=== PATIENT | male | born 1965 | race Hispanic/Latino ===

== ENCOUNTER 2024-06-13 23:58 | Emergency (ER) | payer BC, OTHER ==
[~2024-06-13] VITALS: Ht 172.7 cm; Wt 104.3 kg
[2024-06-14 00:17] LABS: APPEARANCE,URINE TURBID (CLEAR); BILIRUBIN,URINE NEGATIVE (NEGATIVE); COLOR,URINE YELLOW (YELLOW); GLUCOSE, URINE (UA) NEGATIVE (NEGATIVE); KETONES,URINE NEGATIVE (NEGATIVE); LEUKOCYTE ESTERASE ,URINE 500 Leu/uL (NEGATIVE); NITRATE,URINE NEGATIVE (NEGATIVE); OCCULT BLOOD,URINE MODERATE (NEGATIVE); PROTEIN,URINE 100 mg/dL (NEGATIVE)
[2024-06-14 00:26] LABS: BASOPHILS # (AUTO) 0.03 K/uL (0.00-0.20); BASOPHILS % (AUTO) 0.2 % (0.0-5.0); EOSINOPHILS # (AUTO) 0.15 K/uL (0.00-0.70); EOSINOPHILS % (AUTO) 1.2 % (0.0-8.0); HEMATOCRIT 44.7 % (42-54); IMMATURE GRANULOCYTE ABSOLUTE 0.03 K/uL (0-1); LYMPHOCYTES # (AUTO) 1.4 K/uL (1.0-4.8); LYMPHOCYTES % (AUTO) 10.8 % (21.0-51.0); MEAN CORPUSCULAR HEMOGLOBIN 29.5 pg (27.0-33.0); MEAN CORPUSCULAR HGB CONC 34.2 g/dL (32.0-36.0); MEAN CORPUSCULAR VOLUME 86.1 fL (79-99); MONOCYTES # (AUTO) 0.6 K/uL (0.1-1.0); MONOCYTES % (AUTO) 4.6 % (3.0-13.0); NEUTROPHILS # (AUTO) 10.8 K/uL (1.8-7.7); PLATELET COUNT (AUTO) 202 K/uL (130-400); RED BLOOD CELL COUNT(AUTO) 5.19 MIL/uL (4.50-6.20); RED CELL DISTRIBUTION WIDTH 12.9 % (11.0-15.5)
[2024-06-14 00:27] LABS: ADD UA MICROSCOPIC YES
[2024-06-14 00:30] VITALS: TEMP 100.2
[2024-06-14 00:30] LABS: MUCUS,URINE RARE LPF (None Seen); RBC,URINE TNTC /HPF (0-1); SQUAMOUS EPITHELIAL CELL,UR RARE /HPF (0-2); WBC CLUMP MANY /HPF (0-1); WBC,URINE TNTC /HPF (0-1)
[2024-06-14] MEDS: acetaMINOPHEN 325 MG TAB PO ONE (00:30)
--- NOTE | 2024-06-14 00:31 | NUR ---
Walt bautista in [facility] - 06/14/24 at 0031 by MARYJO BLADDER SCAN 12
--- NOTE | 2024-06-14 00:31 | NUR ---
BLADDER SCAN 112MLS
[2024-06-14 00:35] LABS: CREATININE 0.9 mg/dL (0.5-1.3); POTASSIUM 3.7 mmol/L (3.5-5.1)
--- NOTE | 2024-06-14 01:00 | ERN ---
ED Note History of Present Illness Stated Complaint: FEVER, CHILLS, URINARY RETENTION Chief Complaint: Multiple Complaints Time Seen by MD: 00:00 Time Seen by Midlevel: 00:00 Dictation: The patient is a 58-year-old male with a history of prostate surgery last year who presents to the emergency department with complaints of painful urination, chills, fevers onset yesterday. Patient denies any nausea, vomiting, diarrhea, constipation. Reports occasional suprapubic abdominal pain. Denies any flank pain. Allergies: Coded Allergies: No Known Allergies (Unverified Allergy, Unknown, 06/14/24) Past Medical History Past Medical History: No Pertinent History Surgical History: Other Surgical History Other: PROSTATE RN Note Reviewed/Agreed w/PFSH: Yes Review of System Dictation Constitutional: Negative for and weight loss positive for fever, chills Eyes: Negative for injury, pain,redness, and discharge ENT: Negative for injury,pain or swelling Cardiovascular: Negative for chest pain, palpitations, and edema Respiratory: Negative for shortness of breath, cough, and wheezing, Abdomen/GI: Negative for , nausea, vomiting, diarrhea, and constipation positive for suprapubic abdominal pain Back: Negative for injury and pain : Negative for injury, bleeding and discharge positive for painful urination MS/Extremity: Negative for injury and deformity Skin: Negative for rash, and discoloration Neuro: Negative for headache, weakness, numbness, tingling, and seizure Psych: Negative for suicide ideation, homicidal ideation, and hallucinations Initial Vital Sign VS Vital Signs Date Time Temp Pulse Resp B/P (MAP) Pulse Ox O2 Delivery O2 Flow Rate FiO2 06/14/24 00:00 99.1 87 16 139/92 98 Room Air 06/14/24 00:23 0 21 Physical Exam Dictation Vital Signs reviewed General Appearance: Alert, oriented x 3, no acute distress, well developed, nourished. Head and Face: non-traumatic. Eyes: PERRL, pink conjunctivas, eyelid no trauma, anterior chamber with arcus senilis. Ears: Pinnas intact and no signs of trauma or erythema ear canals clear and no discharge TM no erythema Nose: No discharge, no bleeding. Oropharynx: Mouth normal, tongue pink. pharynx clear,no erythema, tonsils no exudates, no abscesses noted, mucous membrane moist Neck: Supple, non-tender, no thyromegaly, no masses, no JVD, no bruits Breast:Deferred Chest:No tenderness, no crepitus, no paradoxical movement, no retractions Lungs:Clear, well-ventilated, symmetric, no rales, no wheezing, no rhonchi, no stridor, good breath sounds bilaterally Heart: Regular rate, regular rhythm, no murmur, no gallops Vascular: no peripheral edema, Abdomen: Soft, positive bowel sounds, nondistended, no guarding, nontender, no rebound, no masses no hepatomegaly, no splenomegaly, no Perera's sign, no hernias. Rectal: Deferred Genital: Deferred Neurological: Normal speech, motor function intact, sensory function intact Musculoskeletal: Neck nontender, full range of motion, back nontender, full range of motion, Extremities: nontender, full range of motion Skin: Color pink, dry, no turgor, no rash, no lacerations, no abrasions, no contusions. Lymphatic: Deferred Results (Laboratory/Radiology) Laboratory/Radiology Laboratory Tests Test 06/14/24 00:04 06/14/24 00:12 Urine Color YELLOW (YELLOW) Urine Appearance TURBID (CLEAR) Urine pH 6.0 (5.0-8.0) Urine Specific [place] 1.038 (1.001-1.031) Urine Protein 100 mg/dL (NEGATIVE) H Urine Glucose (UA) NEGATIVE mg/dL (NEGATIVE) Urine Ketones NEGATIVE mg/dL (NEGATIVE) Urine Occult Blood MODERATE (NEGATIVE) H Urine Nitrate NEGATIVE (NEGATIVE) Urine Bilirubin NEGATIVE mg/dL (NEGATIVE) Urine Urobilinogen 2.0 mg/dL (0.2-1.0) H Urine Leukocyte Esterase 500 Manpreet/uL (NEGATIVE) H Urine RBC TNTC /HPF (0-1) H Urine WBC TNTC /HPF (0-1) H Urine WBC Clumps (Auto) MANY /HPF (0-1) Urine Squamous Epithelial Cells RARE /HPF (0-2) Urine Bacteria None /HPF (None Seen) White Blood Count 13.0 K/uL (4.8-10.8) H Red Blood Count 5.19 MIL/uL (4.50-6.20) Hemoglobin 15.3 g/dL (14.0-18.0) Hematocrit 44.7 % (42-54) Mean Corpuscular Volume 86.1 fL (79-99) Mean Corpuscular Hemoglobin 29.5 pg (27.0-33.0) Mean Corpuscular Hemoglobin Concent 34.2 g/dL (32.0-36.0) Red Cell Distribution Width 12.9 % (11.0-15.5) Platelet Count 202 K/uL (130-400) Mean Platelet Volume 10.8 fL (7.5-10.5) H Immature Granulocyte % (Auto) 0.2 % (0-1) Neutrophils (%) (Auto) 83.0 % (40.0-77.0) H Lymphocytes (%) (Auto) 10.8 % (21.0-51.0) L Monocytes (%) (Auto) 4.6 % (3.0-13.0) Eosinophils (%) (Auto) 1.2 % (0.0-8.0) Basophils (%) (Auto) 0.2 % (0.0-5.0) Neutrophils # (Auto) 10.8 K/uL (1.8-7.7) H Lymphocytes # (Auto) 1.4 K/uL (1.0-4.8) Monocytes # (Auto) 0.6 K/uL (0.1-1.0) Eosinophils # (Auto) 0.15 K/uL (0.00-0.70) Basophils # (Auto) 0.03 K/uL (0.00-0.20) Absolute Immature Granulocyte (auto 0.03 K/uL (0-1) Nucleated Red Blood Cells 0.0 % (0.0-0.19) Sodium Level 139 mmol/L (136-145) Potassium Level 3.7 mmol/L (3.5-5.1) Chloride Level 105 mmol/L (101-111) Carbon Dioxide Level 27 mmol/L (21-32) Blood Urea Nitrogen 17 mg/dL (7-18) Creatinine 0.9 mg/dL (0.5-1.3) Glomerular Filtration Rate Calc 100 mL/min (>90) Random Glucose 149 mg/dL (70-105) H Total Calcium 8.8 mg/dL (8.5-10.1) Labs Reviewed?: Yes ED Course ED Course Orders Procedure Category Date Status Time Urinalysis Profile LAB 06/14/24 Complete 00:05 Cbc With Differential LAB 06/14/24 Complete 00:08 Basic Metabolic Panel LAB 06/14/24 Complete 00:08 Acetaminophen 325 Tab PHA 06/14/24 Complete (Tylenol 325mg Tab 00:30 Culture Urine SUSIE 06/14/24 Logged 00:28 *Nursing CPOE 06/14/24 Transmitted Communication: 00:29 Levofloxacin 750 PHA 06/14/24 In Process Mg/D5w 150 Ml 01:00 Current Medications Medications (Trade) Dose Ordered Sig/Lucie Route PRN Reason Start Time Stop Time Status Last Admin Dose Admin Acetaminophen (TYLenol 325MG TAB) 650 mg ONCE ONCE PO 06/14/24 00:30 06/14/24 00:31 DC 06/14/24 00:30 Levofloxacin/ Dextrose 150 ml @ 100 mls/hr ONCE ONCE IV 06/14/24 01:00 06/14/24 02:29 06/14/24 01:02 Vital Signs Date Time Temp Pulse Resp B/P (MAP) Pulse Ox O2 Delivery O2 Flow Rate FiO2 06/14/24 00:30 100.2 06/14/24 00:23 100.2 88 18 142/65 99 Room Air* 0 21 06/14/24 00:00 99.1 87 16 139/92 98 Room Air Medical Decision Making MDM The patient is a 58-year-old male with a history of prostate surgery last year who presents to the emergency department with complaints of painful urination, chills, fevers onset yesterday. Patient denies any nausea, vomiting, diarrhea, constipation. Reports occasional suprapubic abdominal pain. Denies any flank pain. CBC showed mild leukocytosis, no anemia, chemistry showed normal renal function, urinalysis positive for leukocyte esterase, patient will be treated for urinary tract infection. No urinary retention. Bladder scan only had 100 if cc. Patient in no acute distress, nontoxic appearance, nontender abdomen. Instructed to follow up with PCP. And to return if symptoms worsen or do not improve with the antibiotic treatment. Patient and family agreed to be discharged. Differential diagnosis: UTI, pyelonephritis, dehydration, acute kidney injury Need for hospitalization: Patient does not meet criteria for hospitalization. There are no social concerns with this patient. DX & DISP Disposition: Discharge Departure Impression: Primary Impression: UTI (urinary tract infection) Additional Impressions: Leucocytosis, Fever Condition: Stable Scripts Levofloxacin (Levaquin 750Mg Tabs) 750 Mg Tablet 750 MG PO DAILY for 6 Days, #6 TAB 0 Refills Prov: TABITHACHELSEA RAMSEY 06/14/24 Additional Instructions: Please follow up with your primary doctor in 1-2 days. Follow up with urine cultures to make sure you received in the correct antibiotic. Urine cultures usually take about three days so make sure your follow up. If symptoms worsen and do not improve previous return to ER. FOLLOW-UP WITH PRIMARY CARE PROVIDER IN 1 TO 2 DAYS. TAKE MEDICATIONS DIRECTED HERE IN THE EMERGENCY ROOM. OKAY TO CONTINUE HOME MEDICATIONS UNLESS OTHERWISE DISCUSSED DURING YOUR VISIT IN THE EMERGENCY ROOM TODAY. RETURN TO YOUR NEAREST EMERGENCY ROOM IF SYMPTOMS WORSEN OR IF THERE IS NO IMPROVEMENT. CALL 911 IF YOU NEED IMMEDIATE ASSISTANCE. TAKE TYLENOL OR MOTRIN [id number] NEEDED AND IF NO CONTRAINDICATIONS ARE PRESENT. INCREASE ORAL HYDRATION. A WOUND CULTURE OR URINE CULTURE WAS ORDERED HERE IN THE E MERGENCY ROOM DEPARTMENT PLEASE FOLLOW-UP WITH PRIMARY CARE PROVIDER AND ADVISE THEM TO GET REPEAT PORTS FROM OUR FACILITY. IF YOU HAD ANY CHIKIS WRAP/SPLINTS THAT WERE APPLIED HERE, PLEASE DO NOT REMOVE THEM UNTIL YOU SEE YOUR PRIMARY CARE OR SPECIALTY. Referrals: SYDNI DAVIES MD (PCP) I have reviewed the case, and I agree with, Diagnosis and Plan CHELSEA LU Jun 14, 2024 01:00
[2024-06-14] MEDS: levoFLOXacin 750 MG/D5W 150 ML 150 ML IV ONE (01:02)
[2024-06-14] MEDS ORDERED: LEVO750T68 PO (01:16)
[2024-06-14 01:41] VITALS: BP 135/62; PULSE 87; RESP 18; TEMP 99.8; O2SAT 98
== END 2024-06-14 01:54 | disposition home or self-care (01) ==
LOC: EDH 23:58
DX: N39.0 Urinary tract infection, site not specified (principal); D72.829 Elevated white blood cell count, unspecified; R50.9 Fever, unspecified
CPT/HCPCS: 99284; 80048; 85025; 87086 ×2; 87186; 81001; 36415; 96374; J1956